=== PATIENT | female | born 1955 | race Caucasian/White ===

== ENCOUNTER 2021-02-22 09:03 | Observation (INO) ==
[2021-02-22] MEDS ORDERED: Naloxone 0.4 MG/ML INJ IVP PRN (13:45)
[2021-02-22] MEDS ORDERED: D5% in Water 1,000 ML IVC PRN (14:17)
[2021-02-22] MEDS ORDERED: Dextrose Gel 15 GM/37.5 ML TUBE PO PRN ×2 (14:17)
[2021-02-22] MEDS ORDERED: *HR* Dextrose 50 % in Water (Vial) 50 ML VIAL IVP PRN (14:17)
[2021-02-22] MEDS ORDERED: 0.9 % Sodium Chloride 1,000 ML IVC SCH (14:30)
[2021-02-22] MEDS: Insulin LISPRO 300 UNITS/3 ML VIAL SUBQ SCH (17:50)
[2021-02-22] MEDS ORDERED: Nystatin Cream 15 GM TUBE TP PRN (20:33)
[2021-02-22] MEDS ORDERED: Latanoprost 2.5 ML BOTTLE BOTH EYES SCH (21:00)
[2021-02-22] MEDS: lisinopriL 20 MG TABLET PO SCH (21:27)
[2021-02-22] MEDS: DilTIAZem CD (24hr) 180 MG CAP.ER.24H PO SCH (21:27)
[2021-02-23 01:28] LABS: Basophils % 0.3 %; Eosinophils # 0.2 K/mcL (0.0-0.6); Eosinophils % 2.5 %; Hematocrit 36.9 % (35.3-44.9); Immature Granulocytes % 0.2 % (0-4); Lymphocytes # 1.8 K/mcL (0.6-4.6); Mean Corpuscular HGB Conc 32.5 g/dL (31.6-35.5); Mean Corpuscular Hemoglobin 29.2 pg (28.0-33.3); Mean Corpuscular Volume 89.8 fL (83.0-100.0); Mean Platelet Volume 10.3 fL (9.4-12.4); Monocytes # 0.6 K/mcL (0.0-1.3); Monocytes % 9.2 %; Platelet Count 215 K/mcL (140-400); Red Blood Count 4.11 M/mcL (3.82-4.97); Red Cell Distribution Width 12.8 % (11.5-14.5); Segmented Neutrophils % 60.8 %; White Blood Count 6.5 K/mcL (4.3-11.1)
[2021-02-23 01:50] LABS: BUN/Creatinine Ratio 17 (6-26); Blood Urea Nitrogen 13 mg/dL (8-23); Calcium 8.5 mg/dL (8.6-10.3); Carbon Dioxide 26 mEq/L (23-29); Chloride 109 mEq/L (98-107); Glucose 126 mg/dL (70-105); Osmolality,Calculated 292 (280-300); Potassium 3.8 mEq/L (3.5-5.1); Sodium 140 mEq/L (136-145); eGFR For African Americans > 60 (> 60); eGFR For Non-African Americans > 60 (> 60)
[2021-02-23] MEDS: Insulin LISPRO 300 UNITS/3 ML VIAL SUBQ SCH ×2 (07:13→11:20)
[2021-02-23] MEDS: lisinopriL 20 MG TABLET PO SCH (07:40)
[2021-02-23] MEDS: DilTIAZem CD (24hr) 180 MG CAP.ER.24H PO SCH (07:40)
[2021-02-23] MEDS ORDERED: Acetaminophen IV 500 MG/50 ML BAG IVPB ONE (08:02)
[2021-02-23] MEDS ORDERED: *HR* FentaNYL (PF) 100 MCG/2 ML VIAL ONE (08:21)
[2021-02-23] MEDS ORDERED: *HR* Midazolam HCl 2 MG/2 ML VIAL ONE (08:21)
[2021-02-23] MEDS ORDERED: *HR* Propofol 200 MG/20 ML VIAL IVP ONE (08:22)
[2021-02-23] MEDS ORDERED: Isovue-300 50ML VIAL ONE (08:46)
[2021-02-23] MEDS ORDERED: cefTRIAXone 1,000 MG in Water for inj. (sterile) 10 ML IVP SCH (09:00)
[2021-02-23] MEDS ORDERED: Ondansetron 4 MG/2 ML VIAL IVP PRN (09:08)
[2021-02-23] MEDS ORDERED: *HR* HYDROmorphone PF 0.5 MG/0.5 ML SYRINGE IVP PRN (09:08)
[2021-02-23] MEDS ORDERED: *HR* OxyCODONE Immed Rel 5 MG TABLET PO PRN (09:08)
[2021-02-23] MEDS ORDERED: Ondansetron 4 MG/2 ML VIAL ONE (10:02)
[2021-02-23] MEDS ORDERED: EPHEDrine 50 MG/ML VIAL ONE (10:04)
[2021-02-23] MEDS ORDERED: Nystatin Cream 15 GM TUBE TP PRN (11:43)
[2021-02-23] MEDS ORDERED: *HR* Dextrose 50 % in Water (Vial) 50 ML VIAL IVP PRN (11:43)
[2021-02-23] MEDS ORDERED: Dextrose Gel 15 GM/37.5 ML TUBE PO PRN ×2 (11:43)
[2021-02-23] MEDS ORDERED: Naloxone 0.4 MG/ML INJ IVP PRN (11:43)
[2021-02-23] MEDS ORDERED: D5% in Water 1,000 ML IVC PRN (11:43)
[2021-02-23 15:09] VITALS: BP 111/65; PULSE 82; TEMP 97.9; O2SAT 96
[2021-02-23] MEDS ORDERED: Insulin LISPRO 300 UNITS/3 ML VIAL SUBQ SCH (16:30)
[2021-02-23] MEDS ORDERED: Latanoprost 2.5 ML BOTTLE BOTH EYES SCH (21:00)
[2021-02-24] MEDS ORDERED: lisinopriL 20 MG TABLET PO SCH (09:00)
[2021-02-24] MEDS ORDERED: DilTIAZem CD (24hr) 180 MG CAP.ER.24H PO SCH (09:00)
[2021-02-24] MEDS ORDERED: cefTRIAXone 1,000 MG in Water for inj. (sterile) 10 ML IVP SCH (09:00)
[2021-02-27 09:38] LABS: Calculi Mass 4 mg
== END 2021-02-23 17:33 | disposition home or self-care (01) ==
LOC: 3BNU → SUATTDRO 12:29
PROVIDERS: ADMIT Internal Medicine; ATTEND Nurse Practitioner